=== PATIENT | female | born 1955 | race Caucasian/White ===

== ENCOUNTER → 2018-08-24 | Outpatient (REF) | payer BC, MEDICARE | LOC: M LAB LCGH 15:58 | PROVIDERS: ATTEND Surgery | DX: D12.5 Benign neoplasm of sigmoid colon (principal) ==

== ENCOUNTER → 2022-09-23 | Day surgery (SDC) | payer BC, MEDICARE ==
[~2022-09-23] VITALS: Ht 167.6 cm; Wt 81.6 kg
[~2022-09-23] MED LIST: LIDOCAINE 2% 100MG/5ML SDV (FOR ANES.) As Ordered ONE; NS 1,000 ML IV ONE; OMEP40CA4 PO; VITA100093 PO; fentaNYL 100 MCG/2 ML INJECTION As Ordered ONE; propofoL 200 MG/20 ML VIAL As Ordered ONE
[2022-09-23 16:09] VITALS: BP 142/73; O2SAT 98
== END | disposition home or self-care (01) ==
LOC: M OPP 12:27
PROVIDERS: ATTEND Internal Medicine Gastroenterology
DX: K21.00 Gastro-esophageal reflux disease with esophagitis, without bleeding (principal); K44.9 Diaphragmatic hernia without obstruction or gangrene; K29.70 Gastritis, unspecified, without bleeding; R13.10 Dysphagia, unspecified; R11.2 Nausea with vomiting, unspecified
CPT/HCPCS: 43239; 88305; J3010

== ENCOUNTER → 2022-12-05 | Outpatient (CLI) | payer BC, MEDICARE ==
[~2022-12-05] MED LIST changes: -LIDOCAINE 2% 100MG/5ML SDV (FOR ANES.) As Ordered ONE; -NS 1,000 ML IV ONE; -fentaNYL 100 MCG/2 ML INJECTION As Ordered ONE; -propofoL 200 MG/20 ML VIAL As Ordered ONE
== END ==
LOC: M RAD 13:40
PROVIDERS: ATTEND Otolaryngology
DX: R07.0 Pain in throat (principal)

== ENCOUNTER → 2023-05-22 | Outpatient (CLI) | payer BC, MEDICARE ==
[2023-05-22 11:02] LABS: HEMOGLOBIN 13.6 g/dl (12.0-15.5); MEAN CORPUSCULAR HEMOGLOBIN 29.9 pg (27.0-33.0); MEAN CORPUSCULAR HGB CONC 33.2 g/dl (32.0-36.5); MEAN CORPUSCULAR VOLUME 90.1 fl (80.0-96.0); PLATELET COUNT, AUTOMATED 294 10^3/uL (150-450); RED BLOOD COUNT 4.55 10^6/uL (4.00-5.40); WHITE BLOOD COUNT 7.4 10^3/uL (4.0-10.0)
[2023-05-22 11:42] LABS: BLOOD UREA NITROGEN 15 MG/DL (9-23); CREATININE FOR GFR 0.75 MG/DL (0.55-1.30); GLOMERULAR FILTRATION RATE > 60.0 (>45)
== END ==
LOC: M LAB 09:26
PROVIDERS: ATTEND Surgery
DX: R10.31 Right lower quadrant pain (principal)

== ENCOUNTER → 2023-05-26 | Outpatient (CLI) | payer BC, MEDICARE ==
[~2023-05-26] MED LIST changes: +GASTROGRAFIN SOLUTION 30ML As Ordered ONE; +ISOVUE-370 76% 100ML VIAL As Ordered ONE
== END ==
LOC: M RAD 07:50
PROVIDERS: ATTEND Surgery
DX: R10.31 Right lower quadrant pain (principal); K57.32 Diverticulitis of large intestine without perforation or abscess without bleeding
CPT/HCPCS: 74177; Q9963; Q9967

== ENCOUNTER 2023-07-22 09:08 | Day surgery (SDC) | payer BC, MEDICARE ==
[~2023-07-22] VITALS: Ht 167.6 cm; Wt 78.7 kg
[~2023-07-22 09:08] MED LIST changes: -GASTROGRAFIN SOLUTION 30ML As Ordered ONE; -ISOVUE-370 76% 100ML VIAL As Ordered ONE
[2023-07-22] MEDS: NS 1,000 ML IV ONE (09:44)
[2023-07-22] MEDS ORDERED: propofoL 200 MG/20 ML VIAL As Ordered ONE (09:54)
[2023-07-22 11:31] VITALS: TEMP 97.5
[2023-07-22 11:37] VITALS: BP 128/57; O2SAT 100
== END 2023-07-22 11:47 | disposition home or self-care (01) ==
LOC: M OPP 09:08
PROVIDERS: ATTEND Internal Medicine Gastroenterology
DX: Z86.010 Personal history of colon polyps (principal); D12.6 Benign neoplasm of colon, unspecified; K64.8 Other hemorrhoids; K64.4 Residual hemorrhoidal skin tags; K57.30 Diverticulosis of large intestine without perforation or abscess without bleeding; K44.9 Diaphragmatic hernia without obstruction or gangrene; K22.70 Barrett's esophagus without dysplasia; K21.00 Gastro-esophageal reflux disease with esophagitis, without bleeding; R13.10 Dysphagia, unspecified; Z88.2 Allergy status to sulfonamides; Z79.899 Other long term (current) drug therapy

== ENCOUNTER → 2023-12-16 | Outpatient (REF) | payer BC, MEDICARE ==
[~2023-12-16] MED LIST changes: +CEPH500C PO; +COLA100C5 PO; +HYDR-3713 PO
[2023-12-16 11:14] LABS: APPEARANCE, URINE HAZY (CLEAR); BACTERIA, URINE AUTO NEGATIVE (NEGATIVE); BILIRUBIN, URINE AUTO NEGATIVE (NEGATIVE); BLOOD, URINE BLOOD NEGATIVE (NEGATIVE); COLOR, URINE YELLOW (YELLOW); GLUCOSE, URINE (UA) AUTO NEGATIVE (NEGATIVE); KETONE, URINE AUTO NEGATIVE (NEGATIVE); LEUKOCYTE ESTERASE, URINE AUTO TRACE (NEGATIVE); NITRITE, URINE AUTO NEGATIVE (NEGATIVE); PROTEIN, URINE AUTO NEGATIVE (NEGATIVE); RBC, URINE AUTO 1 /HPF (0-3); SPECIFIC GRAVITY URINE AUTO 1.009 (1.002-1.035); SQUAMOUS EPITHELIAL CELL UR AU 3 /HPF (0-6); UROBILINOGEN, URINE AUTO 0.2 mg/dL (0.0-2.0); WBC, URINE AUTO 5 /HPF (0-3)
== END ==
LOC: M SMT 09:50
PROVIDERS: ATTEND Urology
DX: N81.10 Cystocele, unspecified (principal)

== ENCOUNTER 2023-12-25 06:54 | Day surgery (SDC) | payer BC, MEDICARE ==
[~2023-12-25] VITALS: Ht 167.6 cm; Wt 78.0 kg
[~2023-12-25 06:54] MED LIST changes: +ACETAMINOPHEN 1000MG 100ML IV BAG As Ordered ONE; -CEPH500C PO; -HYDR-3713 PO; +LIDOCAINE 2% 100MG/5ML SDV (FOR ANES.) As Ordered ONE; +MIDAZOLAM INJ 2MG/2ML VIAL As Ordered ONE; +ONDANSETRON 4MG 2ML VIAL As Ordered ONE; +fentaNYL 100 MCG/2 ML INJECTION As Ordered ONE; +propofoL 200 MG/20 ML VIAL As Ordered ONE
[2023-12-25] MEDS ORDERED: LR 1,000 ML IV SCH ×2 (07:30→10:05)
[2023-12-25] MEDS: METHYLENE BLUE 0.5% (5MG/ML) 10 ML AMP (PROVAYBLUE) As Ordered ONE (08:19)
[2023-12-25] MEDS: ESTROGENS VAGINAL CREAM 30GM As Ordered ONE (08:19)
[2023-12-25] MEDS: ceFAZolin SOD 2 GM in IV 1 EA IV ONE (08:45)
[2023-12-25] MEDS ORDERED: ePHEDrine SULFATE 25 MG/5 ML(5MG/ML) SYRINGE As Ordered ONE (08:50)
[2023-12-25] MEDS: LIDOCAINE W/EPINEPHRINE 1% 20ML VIAL As Ordered ONE (10:05)
[2023-12-25] MEDS ORDERED: fentaNYL 100 MCG/2 ML INJECTION IV PRN (10:05)
[2023-12-25] MEDS ORDERED: ONDANSETRON 4MG 2ML VIAL IV PRN (10:05)
[2023-12-25] MEDS ORDERED: CEPH500C PO (11:19)
[2023-12-25] MEDS ORDERED: HYDR-3713 PO (11:19)
[2023-12-25] MEDS: oxyCODONE 5MG TAB PO STA (11:20)
[2023-12-25 12:00] VITALS: BP 155/78; TEMP 98.3; O2SAT 97
== END 2023-12-25 12:30 | disposition home or self-care (01) ==
LOC: M SDC 06:54
PROVIDERS: ATTEND Urology
DX: N81.10 Cystocele, unspecified (principal); K44.9 Diaphragmatic hernia without obstruction or gangrene; K21.9 Gastro-esophageal reflux disease without esophagitis; F41.9 Anxiety disorder, unspecified; Z79.899 Other long term (current) drug therapy; Z87.891 Personal history of nicotine dependence; Z88.2 Allergy status to sulfonamides; Z88.8 Allergy status to other drugs, medicaments and biological substances
CPT/HCPCS: 57240; 88302; C1769; J0131; J0690; J1100; J2250; J2405; J3010

== ENCOUNTER 2024-07-16 09:39 | Day surgery (SDC) | payer BC, MEDICARE ==
[~2024-07-16] VITALS: Ht 167.6 cm; Wt 79.6 kg
[~2024-07-16 09:39] MED LIST changes: -ACETAMINOPHEN 1000MG 100ML IV BAG As Ordered ONE; +ATOR1TAB21 PO; +BENE1POW7 PO; +CEPH500C PO; +GLYCOPYRROLATE INJ 0.2 MG/ML 2 ML VIAL As Ordered ONE; +HYDR-3713 PO; +KETOROLAC 30 MG/ML 1ML VIAL As Ordered ONE; +METOCLOPRAMIDE INJ 10MG/2ML VIAL As Ordered ONE; +MYRB50TA PO; +ceFAZolin SOD 1 GM in DEXTROSE 5% (D5W) ADV/MINI-BAG 50 ML IV SCH
[2024-07-16 10:21] LABS: HEMATOCRIT 40.5 % (36.0-47.0); HEMOGLOBIN 13.5 g/dl (12.0-15.5); MEAN CORPUSCULAR HEMOGLOBIN 30.4 pg (27.0-33.0); MEAN CORPUSCULAR HGB CONC 33.3 g/dl (32.0-36.5); MEAN CORPUSCULAR VOLUME 91.2 fl (80.0-96.0); PLATELET COUNT, AUTOMATED 299 10^3/uL (150-450); RED BLOOD COUNT 4.44 10^6/uL (4.00-5.40); WHITE BLOOD COUNT 6.1 10^3/uL (4.0-10.0)
[2024-07-16] MEDS: LR 1,000 ML IV SCH (11:37)
[2024-07-16] MEDS ORDERED: ROCURONIUM BROMIDE 50MG/5ML VIAL As Ordered ONE (12:04)
[2024-07-16] MEDS ORDERED: SUGAMMADEX SODIUM 500 MG/5 ML VIAL (BRIDION) As Ordered ONE (12:04)
[2024-07-16] MEDS: VASOPRESSIN INJ 20UNITS/ML 1ML VIAL As Ordered ONE (12:09)
[2024-07-16] MEDS: ceFAZolin SOD 2 GM IV ONCE IV ONE (12:40)
[2024-07-16] MEDS ORDERED: ePHEDrine SULFATE 25 MG/5 ML(5MG/ML) SYRINGE As Ordered ONE (12:46)
[2024-07-16] MEDS ORDERED: fentaNYL 100 MCG/2 ML INJECTION IV PRN (13:50)
[2024-07-16] MEDS ORDERED: MORPHINE 2 MG/ML 1ML VIAL IV PRN (13:50)
[2024-07-16] MEDS ORDERED: oxyCODONE 5MG TAB PO PRN (13:50)
[2024-07-16] MEDS ORDERED: ONDANSETRON 4MG 2ML VIAL IV PRN (13:50)
[2024-07-16 15:45] VITALS: BP 147/66; TEMP 96.8; O2SAT 98
== END 2024-07-16 16:13 | disposition home or self-care (01) ==
LOC: M SDC 09:39
PROVIDERS: ATTEND Specialist
DX: N81.10 Cystocele, unspecified (principal); N81.6 Rectocele; N32.89 Other specified disorders of bladder; R32 Unspecified urinary incontinence; K44.9 Diaphragmatic hernia without obstruction or gangrene; Z90.710 Acquired absence of both cervix and uterus; Z90.722 Acquired absence of ovaries, bilateral; Z90.79 Acquired absence of other genital organ(s); E78.00 Pure hypercholesterolemia, unspecified; K21.9 Gastro-esophageal reflux disease without esophagitis; Z79.899 Other long term (current) drug therapy; Z88.2 Allergy status to sulfonamides; Z88.8 Allergy status to other drugs, medicaments and biological substances; Z87.891 Personal history of nicotine dependence
CPT/HCPCS: 36415; 57240; 85027; 86850; 86900; 86901; 88302; J0665; J0690; J1100; J1596; J1885; J2250; J2405; J2765; J3010